=== PATIENT | male | born 1985 | race Caucasian/White ===

== ENCOUNTER 2025-04-06 10:31 | Emergency (ER) | payer MEDICAID, SELFPAY ==
--- NOTE | 2025-04-06 10:30 | RT.EKG_ITS ---
APPROVED REPORT Exam: Resting ECG Reason for Exam: SOB, Difficulty Breathing Patient Location: E HR:87 bpm ECG Measurements Heart Rate 87 AXIS KS 157 P 61 QRSd 81 QRS 11 QT 387 T 156 QTc 465 Conclusion Pacemaker spikes or artifacts...timing non-diagnostic Sinus rhythm...normal P axis, V-rate 60- 99 Abnormal T, consider ischemia, lateral leads...T <-0.20mV, I aVL V5 V6
[2025-04-06 10:40] VITALS: BP 208/62; PULSE 86; RESP 22; O2SAT 97
[2025-04-06 10:43] VITALS: PULSE 86; O2SAT 98
[2025-04-06 10:45] VITALS: BP 205/81; PULSE 87; O2SAT 98
--- NOTE | 2025-04-06 10:45 | DI.RAD_ITS ---
Exam(s) XR CHEST 2V PA LATERAL EXAM: XR CHEST 2V PA LATERAL CLINICAL HISTORY: SOB, L sided CP. TECHNIQUE: 2D digital imaging was performed. COMPARISON: No exams were available for comparison FINDINGS: 2 views: There is cardiomegaly. Mediastinum is not widened. There is diffuse abnormal bilateral interstitial pattern with some patchy infiltrates peripherally. Possible small left pleural effusion. No fractures. No pneumothorax. No osseous lesions evident. IMPRESSION: Cardiomegaly and diffuse abnormal bilateral interstitial and partially confluent pattern. Main considerations are for cardiomyopathy and pulmonary edema versus infectious etiology. Correlation with clinical findings in this 32 atrial patient recommended. Preliminary V rad report was reviewed DATA REPOSITORY: RADIATION DOSE DELIVERED:
[2025-04-06 10:50] VITALS: PULSE 85; O2SAT 98
[2025-04-06 11:00] VITALS: PULSE 83; O2SAT 99
--- NOTE | 2025-04-06 11:00 | W.ED.GENAD ---
Discharge Plan Disposition Patient Disposition: Against Medical Advice Discharge Details Clinical Impression: Kidney failure, Acute hyperkalemia, Fluid overload, Severe anemia, Shortness of breath, Elevated troponin Primary Care Provider: Unknown,Unknown ED Provider: Gretchen Toney Home Meds and New Rx's Prescriptions: New Lokelma 10 gram powder in packet 10 g PO DAILY Qty: 11 0RF furosemide [Lasix] 40 mg tablet 80 mg PO DAILY Qty: 10 0RF metolazone 5 mg tablet 5 mg PO DAILY Qty: 7 0RF torsemide 100 mg tablet 100 mg PO DAILY Qty: 7 0RF Continued metformin [Glucophage XR] 500 mg tablet extended release 24 hr 500 mg PO DAILY lisinopril 20 mg tablet 40 mg PO DAILY Trulicity 0.75 mg/0.5 mL pen injector 0.75 mg subcut QWEEK B12 5,000-100 mcg lozenge 1 jeevan sublingual DAILY amlodipine 5 mg tablet 10 mg PO DAILY labetalol 100 mg tablet 100 mg PO TID chlorthalidone 25 mg tablet 25 mg PO DAILY ondansetron 4 mg tablet,disintegrating 4 mg PO QD-BID PRN moxifloxacin 0.5 % drops 1 drp ophthalmic (eye) TID No Action furosemide [Lasix] 40 mg tablet 40 mg PO DAILY Discharge Instructions Additional Instructions: A referral has been made to [facility] nephrology for you to have urgent follow-up pleat. Please call them first thing Tuesday morning to set up an appointment. It is critically important that you recheck your labs and continue further assessment/monitoring of your condition with your nephrology team. You have decided to leave AGAINST MEDICAL ADVICE. It is strongly recommended that you stay in the hospital and receive treatment for your critical conditions including severe anemia, elevated potassium, fluid overload, elevated troponins concerning for heart attack, and kidney failure. We have discussed the risks of going home without treatment, including cardiac arrhythmias, sudden , respiratory failure, multiorgan dysfunction, loss of lifestyle/permanent disability, and worsening of chronic conditions. You have voiced understanding of this risk, as well as the fact that you are encouraged to return to emergency care at any time. You are being prescribed a medication called Lokelma to help lower your potassium. You will take this 3 times today, then once daily. Your furosemide is also being increased from 40 mg daily to 80 mg daily to help increase your urine output and decrease your fluid retention. You are welcome to return to emergency care at any time if you have any new/concerning symptoms or would like further workup/treatment. Stand Alone Forms: Portal Information Discharge Data Discharge Date/Time-TO BE ENTERED AT DEPARTURE: 04/06/25 14:05 HPI General Date/Time Provider Initiated Documentation: 04/06/25 10:32. HPI Narrative: Amilcar is a 40-year-old male who presents to the emergency department accompanied by his for evaluation of shortness of breath left-sided chest pain. Reports symptoms started 3 days ago, has been progressively worsening since onset. Symptoms accompanied by frontal headache and congestion with occasional nosebleeds; last night had fevers/diaphoresis. He reports he is unable to sleep flat due to shortness of breath, he is also worsened with ambulation. Denies sore throat, ear pain, dizziness, coughing, nausea/vomiting, change in p.o. intake, abdominal pain, change in bowel or bladder function, blood in stool or urine, change in baseline pedal edema. Says he has not had similar symptoms previously. He does have a history of CKD and hypertension. Denies recent ill contacts. Denies significant family history of early cardiac disease. Denies recent surgery, immobility, hormone use, history of blood clots. Denies tobacco use or history of IV drug use, history of lung disease or heart disease. Related Data Home Medications Medication Instructions Recorded Confirmed amlodipine 5 mg tablet 10 mg PO DAILY 04/06/25 04/06/25 chlorthalidone 25 mg tablet 25 mg PO DAILY 04/06/25 04/06/25 cyanocobalamin (B12)-cobamamide 1 jeevan sublingual DAILY 04/06/25 04/06/25 5,000 mcg-100 mcg sublingual lozenge (B12) dulaglutide 0.75 mg/0.5 mL 0.75 mg subcut QWEEK 04/06/25 04/06/25 subcutaneous pen injector (Trulicity) furosemide 40 mg tablet (Lasix) 40 mg PO DAILY 04/06/25 04/06/25 furosemide 40 mg tablet (Lasix) 80 mg (2 x 40 mg) PO DAILY #10 tabs 04/06/25 labetalol 100 mg tablet 100 mg PO TID 04/06/25 04/06/25 lisinopril 20 mg tablet 40 mg PO DAILY 04/06/25 04/06/25 metformin 500 mg tablet,extended 500 mg PO DAILY 04/06/25 04/06/25 release 24 hr (Glucophage XR) metolazone 5 mg tablet 5 mg PO DAILY #7 tabs 04/06/25 moxifloxacin 0.5 % eye drops 1 drp ophthalmic (eye) TID 04/06/25 04/06/25 ondansetron 4 mg disintegrating 4 mg PO QD-BID PRN 04/06/25 04/06/25 tablet sodium zirconium cyclosilicate 10 10 g PO DAILY #11 ea 04/06/25 gram oral powder packet (Lokelma) torsemide 100 mg tablet 100 mg PO DAILY #7 tabs 04/06/25 Previous Rx's Medication Instructions Recorded furosemide 40 mg tablet (Lasix) 80 mg (2 x 40 mg) PO DAILY #10 tabs 04/06/25 metolazone 5 mg tablet 5 mg PO DAILY #7 tabs 04/06/25 sodium zirconium cyclosilicate 10 10 g PO DAILY #11 ea 04/06/25 gram oral powder packet (Lokelma) torsemide 100 mg tablet 100 mg PO DAILY #7 tabs 04/06/25 Allergies Allergy/AdvReac Type Severity Reaction Status Date / Time No Known Allergies Allergy Unverified 04/06/25 11:44 General Stated Complaint: SOB PEYMAN: 2 Exam Const General: cooperative, ill appearing (Pale, increased work of breathing, low energy) acutely and well hydrated Nutritional Appearance: average body habitus [facility] Head: normal to inspection Ears: hearing grossly normal bilaterally General nose exam: external nose normal Face and sinus: normal facial exam Mouth: oral mucosae normal, lip normal and tongue normal Neck Neck: normal visual inspection, full ROM and no lymphadenopathy Chest Chest: normal inspection of the chest and normal palpation of entire chest wall Resp Effort & Inspection: able to speak in complete sentences, no cough and other (Slightly increased work of breathing) Auscultation: clear to auscultation bilaterally Cardio Jugular venous pressure: no JVD Rate: regular rate Rhythm: regular rhythm Heart Sounds: no murmurs Pulses: radial pulses present GI Inspection: normal to inspection, non-distended, no obesity, no visible herniation and no visible pulsation Palpation: soft, no guarding, no hernias and nontender Skin General skin exam: no rashes or lesions noted Neuro General: patient alert, patient oriented x3 and tone normal Cranial Nerves: facial strength normal Cognition: normal cognition Speech: speech normal Motor: muscle tone normal throughout Extrem General: pedal edema bilaterally (Mild, no erythema or warmth) non-pitting Course Vital Signs Vital signs: Vital Signs Pulse 86 04/06/25 10:40 Respiratory Rate 22 04/06/25 10:40 Blood Pressure 208/62 H 04/06/25 10:40 Pulse Oximetry 97 04/06/25 10:40 Pulse 86 04/06/25 10:40 Respiratory Rate 22 04/06/25 10:40 Blood Pressure 208/62 H 04/06/25 10:40 Pulse Oximetry 97 04/06/25 10:40 Oxygen Delivery Method Nasal Cannula 04/06/25 10:40 Oxygen Flow Rate 2 04/06/25 10:40 Medical Decision Making Amilcar is a 32-year-old male who presents to the emergency department today for evaluation of shortness of breath, left-sided chest pain, fatigue, nasal congestion and frontal headache with occasional fever x 3 days Physical exam remarkable for palpation, appears fatigued, increased work of breathing, lung sounds clear bilaterally. No conjunctival pallor or nasal congestion/lesions. Normal heart sounds, regular rate and rhythm. O2 sat 89% on room air after ambulation, increases at rest. D/dx includes but is not limited to: Community-acquired pneumonia, viral illness such as COVID-19 or flu, ACS, CHF, electrolyte imbalance, symptomatic anemia I independently interpreted the following tests: COVID/flu/RSV negative. Chest x-ray notable for diffuse opacities, radiologist interpreted this as multifocal pneumonia versus pulmonary vascular congestion. EKG performed, shows normal sinus rhythm rate 97. Diffuse T wave inversions. I did discuss this with patient, he says that he has known about T wave inversions on his EKGs performed previously and this is not a new finding. CBC notable for significant anemia, H&H 6.4 and 19.6 today versus 10.5 and 31.0 on 06/06/2024. CMP notable for significant hyperkalemia, potassium 6.53 today, and significant worsening of kidney function with creatinine 9.16, BUN 112 (versus 4.35 and 57 respectively on 06/06/2024. BNP very elevated at 46,871. Troponin elevated at 635, a repeat was not obtained as patient only consented to a single blood draw. Amilcar has repeatedly declined an IV despite extensive discussion about risks associated with an incomplete workup. After extensive discussion, including review of chest x-ray results, he does agreeable to a one-time blood draw (thus allowing for only a single troponin and blood culture set), but refuses IV. I explained that I am very concerned about patient's condition, including hypoxia with ambulation, risk of CHF/fluid overload, electrolyte imbalances, symptomatic anemia, cardiac disease, or bloodstream infection. I did offer him PO or intranasal anxiolytics for procedural anxiolysis, which he declined. 1. I explained the current situation and condition to the patient and his 2. I explained the recommended workup/intervention for this condition -IV placement and inpatient admission/transfer for management of fluid overload, electrolyte imbalances, and kidney failure. 4. The patient understands this information has no questions, and repeated back this information. He acknowledges the risk of due to inadequately treated serious conditions, but says that he would rather at home than stay in the hospital. He is willing to do outpatient follow-up with specialist as needed 5. The patient states that they need to leave and will call nephrology first thing Tuesday morning for follow-up appointment. He has also requested that I call with any updates from nephrology consult. 6. Mental status is lucid and the patient has decision-making capacity. 7. Patient is accompanied by his , acknowledges that he can return to the emergency department at any time for further evaluation/management I did review patient presentation and labs with Dr. Birmingham, attending physician. While in the emergency dept patient received 40 mg p.o. furosemide and p.o. Lokelma. He declines IV placement, so p.o. medications were used. Did advise him that these were temporizing measures and were likely to not be effective and he is still at serious risk upon departure from the emergency department as he has requested to leave AGAINST MEDICAL ADVICE. He says that he will follow-up with nephrology outpatient on Tuesday. History and presentation most consistent with kidney failure with fluid overload, serious anemia, hyperkalemia, and elevated troponins (concerning for NSTEMI/demand ischemia). Patient did leave AGAINST MEDICAL ADVICE after extensive and lengthy discussion about significant findings requiring inpatient monitoring and treatment with significant risk for complications including at home. I did review instructions for medication changes (increase of furosemide to 80 mg daily and addition of Lokelma) with patient, including symptomatic management, importance of follow up with PCP, and red flags indicating need for return to emergency care. Pt voices agreement with plan of care I did place a call to [facility] nephrology, as patient and his said that they were still interested in hearing what nephrology had did say and would like me to call him with results of this discussion. I reviewed patient's labs, presentation, and treatment here in ED. Dr. Odell, nephrology recommends adding metolazone 5 mg and switching furosemide to 100 mg torsemide daily with repeat labs on Tuesday or Tuesday. I did call the number listed in chart (Marek's cell phone) and left a message for patient and his to call back for instructions on changes to medications and f/u as recommended by nephrology. Imaging Data Radiologic Study: Radiologist's impression: PROCEDURE INFORMATION: Exam: XR Chest Exam date and time: 04/06/2025 11:13 AM Age: 40 years old Clinical indication: Pain; Shortness of breath; Left-sided TECHNIQUE: Imaging protocol: Radiologic exam of the chest. Views: 2 views. COMPARISON: No relevant prior studies available. FINDINGS: Lungs: Diffuse opacities throughout the lung herr may represent multifocal pneumonia or pulmonary edema or congestive heart failure.. Pleural spaces: There may be mild left pleural effusion.. Heart/Mediastinum: Cardiomegaly Bones/joints: Unremarkable. IMPRESSION: 1. Diffuse opacities throughout the lung herr may represent multifocal pneumonia or pulmonary edema or congestive heart failure.. 2. There may be mild left pleural effusion.. PFSH All Active Problems (Updated 04/06/25 @ 14:05 by Gretchen Lopez) Elevated troponin (Acute) Shortness of breath (Acute) Severe anemia (Acute) Fluid overload (Acute) Acute hyperkalemia (Acute) Kidney failure (Chronic) Social History Smoking/Tobacco Use Status: Never Smoking risk assessment performed?: Yes Alcohol Intake: never Substance use type: does not use
[2025-04-06 11:01] VITALS: BP 193/68; PULSE 83; TEMP 36.5; O2SAT 98
[2025-04-06 11:44] LABS: COVID-19 PCR Negative (Negative); RSV PCR Negative (Negative)
--- NOTE | 2025-04-06 11:48 | DI.VRAD_ITS ---
PROCEDURE INFORMATION: Exam: XR Chest Exam date and time: 04/06/2025 11:13 AM Age: 40 years old Clinical indication: Pain; Shortness of breath; Left-sided TECHNIQUE: Imaging protocol: Radiologic exam of the chest. Views: 2 views. COMPARISON: No relevant prior studies available. FINDINGS: Lungs: Diffuse opacities throughout the lung herr may represent multifocal pneumonia or pulmonary edema or congestive heart failure.. Pleural spaces: There may be mild left pleural effusion.. Heart/Mediastinum: Cardiomegaly Bones/joints: Unremarkable. IMPRESSION: 1. Diffuse opacities throughout the lung herr may represent multifocal pneumonia or pulmonary edema or congestive heart failure.. 2. There may be mild left pleural effusion.. Dictated and Authenticated by: Vadim Anne MD. Orderin Merissa Godinez MD
[2025-04-06 12:36] LABS: Abs Immature Grans 0.03 10^3/uL (0.0-0.06); BE (Venous) -6 mmol/L (-2-3); HCO3 (Venous) 19 mmol/L (23-28); Immature Grans % 0.3 %; MCH 28.4 pg (27.0-33.0); MCHC 32.7 % (32.0-36.0); MCV 87 fL (80-95); MPV 10.5 fL (8.0-11.0); O2 Sat (Venous) 71 %; Platelet Count 170 10^3/uL (130-400); RBC 2.25 10^6/uL (4.36-5.78); RDW 13.9 % (11.8-14.1); RDW-SD 43.6 fL; TCO2 (Venous) 19 mmol/L (24-29); WBC 8.88 10^3/uL (4.4-10.8); pCO2 (Venous) 35 mmHg (41-51); pO2 (Venous) 38 mmHg
[2025-04-06 12:41] LABS: HCT 19.6 % (40.0-50.0); HGB 6.4 g/dL (13.5-17.5)
[2025-04-06 12:47] LABS: Hypochromasia 2+
[2025-04-06 12:56] LABS: Magnesium 2.2 mg/dL (1.6-2.6)
[2025-04-06 13:21] LABS: ALT 11 U/L (10-49); AST 12 U/L (<34); Albumin 3.7 g/dL (3.4-5.0); Alkaline Phosphatase 69 U/L (46-116); Anion Gap 13.1 mmol/L (3-11); BUN 112 mg/dL (9-23); Bilirubin, Total 0.20 mg/dL (0.2-1.2); CO2 18.9 mmol/L (20.0-31.0); Calcium 7.6 mg/dL (8.3-10.6); Chloride 107 mmol/L (98-107); Glucose 109 mg/dL (74-106); Potassium 6.5 mmol/L (3.5-5.1); Sodium 139 mmol/L (136-145); Total Protein 6.1 g/dL (5.7-8.2); Troponin I 653 ng/L (<54)
[2025-04-06] MEDS: Sodium Zirconium Cyclosilicate 10 GM PKT PO (13:46)
[2025-04-06] MEDS: Furosemide 40 MG TAB PO (13:51)
[2025-04-06] MEDS: Furosemide 20 MG TAB (14:18)
[2025-04-06] MEDS: Sodium Zirconium Cyclosilicate 10 GM PKT 20 GM PO (14:19)
== END 2025-04-06 14:05 | disposition left against medical advice (07) ==
PROVIDERS: Emergency Provider Nurse Practitioner Family
DX: D64.9 Anemia, unspecified (principal); R06.02 Shortness of breath; E87.5 Hyperkalemia; N19 Unspecified kidney failure; R79.89 Other specified abnormal findings of blood chemistry; E87.70 Fluid overload, unspecified
CPT/HCPCS: 99285 ×2; 36415; 80053; 82805; 87040; 87637; 93005; 71046; 81003; 83735; 83880; 84484; 85025; 93010

== ENCOUNTER 2025-04-12 13:05 | Emergency (ER) | payer MEDICAID, SELFPAY ==
[2025-04-12] VITALS (53 sets, daily range): BP systolic 159–193; BP diastolic 55–84; PULSE 75–89; RESP 15–24; TEMP 36.4; O2SAT 80–98
--- NOTE | 2025-04-12 13:00 | RT.EKG_ITS ---
APPROVED REPORT Exam: Resting ECG Reason for Exam: dyspnea Patient Location: E HR:81 bpm ECG Measurements Heart Rate 81 AXIS ID 168 P 42 QRSd 100 QRS 28 QT 386 T 132 QTc 449 Conclusion Sinus rhythm...normal P axis, V-rate 60- 99 Abnormal T, consider ischemia, lateral leads...T <-0.20mV, I aVL V5 V6
--- NOTE | 2025-04-12 13:15 | DI.RAD_ITS ---
Exam(s) XR CHEST 2V PA LATERAL EXAM: XR CHEST 2V PA LATERAL CLINICAL HISTORY: shortness of breath TECHNIQUE: 2D digital imaging was performed. Two views. COMPARISON: CR,XR XR CHEST 2V PA LATERAL from 04/06/2025 FINDINGS: HEART: Markedly enlarged but unchanged. Aorta: Not dilated. PULMONARY VASCULATURE: Normal. MEDIASTINUM: Unremarkable. LUNGS: Diffuse bilateral infiltrates, not visibly changed from the prior exam. PLEURAL SPACE: Trace left pleural effusion. No pneumothorax. BONE:Unremarkable for age. SOFT TISSUES: Unremarkable. IMPRESSION: Cardiomegaly and increased pulmonary markings could indicate CHF however superimposed infection is not excluded. DATA REPOSITORY: RADIATION DOSE DELIVERED:
[2025-04-12 13:59] LABS: BE (Venous) -10 mmol/L (-2-3); HCO3 (Venous) 17 mmol/L (23-28); O2 Sat (Venous) 90 %; TCO2 (Venous) 17 mmol/L (24-29); pCO2 (Venous) 37 mmHg (41-51); pO2 (Venous) 62 mmHg
[2025-04-12 14:00] LABS: Abs Immature Grans 0.02 10^3/uL (0.0-0.06); Immature Grans % 0.3 %; MCH 31.7 pg (27.0-33.0); MCHC 36.1 % (32.0-36.0); MCV 88 fL (80-95); MPV 10.7 fL (8.0-11.0); Platelet Count 210 10^3/uL (130-400); RBC 2.21 10^6/uL (4.36-5.78); RDW 13.3 % (11.8-14.1); RDW-SD 42.1 fL; WBC 7.82 10^3/uL (4.4-10.8)
--- NOTE | 2025-04-12 14:00 | W.ED.GENAD ---
Discharge Plan Discharge Details Chief Complaint: Chest Pain Primary Care Provider: Sanjeev Hebert ED Provider: Darrin Ruiz Home Meds and New Rx's Prescriptions: No Action metformin [Glucophage XR] 500 mg tablet extended release 24 hr 500 mg PO DAILY lisinopril 20 mg tablet 40 mg PO DAILY Trulicity 0.75 mg/0.5 mL pen injector 0.75 mg subcut QWEEK B12 5,000-100 mcg lozenge 1 jeevan sublingual DAILY amlodipine 5 mg tablet 10 mg PO DAILY labetalol 100 mg tablet 100 mg PO TID chlorthalidone 25 mg tablet 25 mg PO DAILY ondansetron 4 mg tablet,disintegrating 4 mg PO QD-BID PRN moxifloxacin 0.5 % drops 1 drp ophthalmic (eye) TID Lokelma 10 gram powder in packet 10 g PO DAILY Qty: 11 0RF metolazone 5 mg tablet 5 mg PO DAILY Qty: 7 0RF torsemide 100 mg tablet 100 mg PO DAILY Qty: 7 0RF HPI General Date/Time Provider Initiated Documentation: 04/12/25 13:13. HPI Narrative: 40 year-old male presents to ED today by POV/ambulating with his spouse with a chief complaint of chest pain, shortness of breath, just feeling like crap with onset last night after a complex visit 6 days ago with volume overload, renal failure- left AMA on multiple new medications with [facility] consult. Quality described as just generally feels like crap, no radiation to fever, severe chest pain, denies vomiting, endorses some improvement of his leg swelling after starting diuretics- poor historian. Severity is described as moderate to severe. Palliating factors include taking his new medications as directed. Provoking factors include nothing specific. Patient not anticoagulated. Related Data Home Medications Medication Instructions Recorded Confirmed amlodipine 5 mg tablet 10 mg PO DAILY 04/06/25 04/12/25 chlorthalidone 25 mg tablet 25 mg PO DAILY 04/06/25 04/12/25 cyanocobalamin (B12)-cobamamide 1 jeevan sublingual DAILY 04/06/25 04/12/25 5,000 mcg-100 mcg sublingual lozenge (B12) dulaglutide 0.75 mg/0.5 mL 0.75 mg subcut QWEEK 04/06/25 04/12/25 subcutaneous pen injector (Trulicity) labetalol 100 mg tablet 100 mg PO TID 04/06/25 04/12/25 lisinopril 20 mg tablet 40 mg PO DAILY 04/06/25 04/12/25 metformin 500 mg tablet,extended 500 mg PO DAILY 04/06/25 04/12/25 release 24 hr (Glucophage XR) metolazone 5 mg tablet 5 mg PO DAILY #7 tabs 04/06/25 04/12/25 moxifloxacin 0.5 % eye drops 1 drp ophthalmic (eye) TID 04/06/25 04/12/25 ondansetron 4 mg disintegrating 4 mg PO QD-BID PRN 04/06/25 04/12/25 tablet sodium zirconium cyclosilicate 10 10 g PO DAILY #11 ea 04/06/25 04/12/25 gram oral powder packet (Lokelma) torsemide 100 mg tablet 100 mg PO DAILY #7 tabs 04/06/25 04/12/25 Previous Rx's Medication Instructions Recorded metolazone 5 mg tablet 5 mg PO DAILY #7 tabs 04/06/25 sodium zirconium cyclosilicate 10 10 g PO DAILY #11 ea 04/06/25 gram oral powder packet (Lokelma) torsemide 100 mg tablet 100 mg PO DAILY #7 tabs 04/06/25 Allergies Allergy/AdvReac Type Severity Reaction Status Date / Time No Known Allergies Allergy Unverified 04/12/25 13:09 General Stated Complaint: Chest Pain PEYMAN: 3 Review of Systems All systems reviewed & are unremarkable except as noted in HPI and below Exam Narrative Exam Narrative: GENERAL APPEARANCE: Well-nourished, toxic, awake and alert, atraumatic, moderate acute distress. SKIN: Warm, pale, dry, intact, without rashes/lesions/ulcerations. HEAD: Normocephalic, atraumatic, normal hair distribution for gender/age. EYES: No exudates on lids/lashes. ENT: Nares patent, no circumoral cyanosis, no facial swelling NECK: Supple, trachea midline, painless cervical ROM. LUNGS/CHEST: Lungs CTA bilaterally-no rales at bases, non-labored respirations despite mild hypoxia monitor, normal A/P diameter, symmetrical expansion, no chest wall deformity HEART (CV/PV): Regular rate and rhythm without murmur, 3+ pitting peripheral edema in bilateral lower extremities, no JVD. ABDOMEN: Soft, non-distended, no guarding, no tenderness. MSK: Normal ROM, no swelling/deformity to bilateral UEs or LEs, moving all extremities without weakness, no cyanosis, spine midline without tenderness, normal curvature. NEURO: Mental Status AAOx4 - alert to person, place, time, events No facial droop, no forehead involvement. Motor: No focal weakness - strength 5/5 in bilateral UEs and LEs, proximal and distal, symmetric. Sensory: sensation intact to light touch globally. Gait normal: patient ambulated without ataxia into ED room. PSYCH: dysthymic, uncooperative, tangential, appropriate speech Course Vital Signs Vital signs: Vital Signs Temperature 36.4 C L 04/12/25 13:06 Pulse 87 04/12/25 13:06 Respiratory Rate 18 04/12/25 13:06 Blood Pressure 159/83 H 04/12/25 13:06 Pulse Oximetry 80 L 04/12/25 13:06 Temperature 36.4 C L 04/12/25 13:06 Pulse 87 04/12/25 13:06 Respiratory Rate 18 04/12/25 13:06 Blood Pressure 159/83 H 04/12/25 13:06 Pulse Oximetry 80 L 04/12/25 13:06 Oxygen Delivery Method Room Air 04/12/25 13:06 Oxygen Flow Rate 0 04/12/25 13:06 Pain Level 7 04/12/25 13:06 Lab/Test Results Lab/Test Results: Laboratory Tests Range/Units 04/12/25 13:45 VBG pH (7.31-7.41) 7.28 L VBG pCO2 (41-51) mmHg 37 L VBG pO2 mmHg 62 VBG HCO3 (23-28) mmol/L 17 L VBG Total CO2 (24-29) mmol/L 17 L VBG O2 Saturation % 90 VBG Base Excess (-2-3) mmol/L -10 L VBG Lactate (<or=2.0) mmol/L 0.7 Medical Decision Making This dictation utilizes [id number] dictation software and may contain unedited grammatical errors. 40 year-old male presents to ED today by POV/ambulating with his spouse with a chief complaint of chest pain, shortness of breath, just feeling like crap with onset last night after a complex visit 6 days ago with volume overload, renal failure- left AMA on multiple new medications with [facility] consult. Quality described as just generally feels like crap, no radiation to fever, severe chest pain, denies vomiting, endorses some improvement of his leg swelling after starting diuretics- poor historian. Severity is described as moderate to severe. Palliating factors include taking his new medications as directed. Provoking factors include nothing specific. 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 Family and social history: Endorses past drug use issues, denies active drug use, denies alcohol use, lives at home with his spouse. Pertinent exam findings / vital signs include 3+ pitting edema in lower extremities, pale skin, mild hypoxia on arrival without labored respirations, neuro intact, no rales at bases. Differential / pathologies of concern include anemia, renal failure, hyperkalemia, volume overload. Diagnostic studies of: -CBC, CMP, lactate, lipase, CK, magnesium, troponin, BNP, VBG, urinalysis, XR chest, EKG. - CBC shows HgB of 7.0, improved from prior value 6.4, HCT 19.4- stable with prior 19.6 - CMP shows potassium 6.5, BUN 148 worsening, creatinine 10.79 worsening - Lactate within normal limits - VBG shows metabolic acidosis - CK is elevated at nearly 900 indicating rhabdomyolysis - BNP 40,580- [place] [address] - Trop 192, improved from 6 days ago in 600s - EKG shows sinus rhythm at 81 bpm with no peaked T waves, does have T wave inversions in Lead I, V4-V5 as well as aVL, no ST elevations, no ST depressions, normal QTc, normal axis, good R wave progression Interventions of: - Paged [facility] @ [phone] for transfer, patient needs dialysis. - Patient had previously perseverated on that he would only transfer by POV- refusing ambulance. Will be against medical advice. 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 I stated that the possible excepting facility of [facility] may not be okay with this plan, I am certainly not okay with his reasoning for this and I we will be forced to discharge him AGAINST MEDICAL ADVICE after shifting his potassium. He acknowledged the risk of cardiac arrhythmia and if not treated according to our guidelines of transfer under the care of cardiac monitoring for these medications. This was witnessed by his girlfriend. - 1 g IV calcium gluconate, 1 L D5 W, 1 treatment of albuterol updraft, 40 mg IV Lasix, 10 units insulin subcu, 10 g p.o. of [facility] ED Course/Assessment/Plan: 40-year-old male with T2DM and acute renal failure returns after signing out AMA 6 days ago and acute renal failure with a creatinine of 9.2 at that time worsening to 10.79, he has persistent hyperkalemia of 6.5 without peaked T waves or widened QRS today, his BNP is 40,000 he does have evidence of CHF on chest x-ray and pedal edema as well as mild hypoxia to 88 to 91%, was 80% on arrival ambulating from the parking lot. He has profound anemia with a hemoglobin of 7.0. Patient is unreasonably refusing ambulance transfer because he does not trust other peoples' driving, and acknowledges that he has multiple life threatening conditions and that he will likely without proper treatment, which involves dialysis, and cardiac monitoring for medications during transfer as well as O2 by PR. Patient has capacity and is non-psychotic and acknowledges these facts and insists that he will not go in anyones' car but their own. Patient will have his potassium shifted here, sending Type & Screen, awaiting hospitalist call-back from [facility] in [place], [place] where [facility] states they have capacity for dialysis. Disposition of Acute Renal Failure, Hyperkalemia, CHF Exacerbation, Rhabdomyolysis, Anemia. Patient verbalized understanding of the plan and return to ED criteria and engaged in shared decision making. Medical Records Medical records reviewed: Yes I reviewed the patient's medical records. Imaging Data Radiologic Study: Attestation: I personally reviewed and interpreted this imaging study as follows: Imaging: X-Ray Radiologist's impression: EXAM: XR CHEST 2V PA LATERAL CLINICAL HISTORY: shortness of breath TECHNIQUE: 2D digital imaging was performed. Two views. COMPARISON: CR,XR XR CHEST 2V PA LATERAL from 04/06/2025 FINDINGS: HEART: Markedly enlarged but unchanged. Aorta: Not dilated. PULMONARY VASCULATURE: Normal. MEDIASTINUM: Unremarkable. LUNGS: Diffuse bilateral infiltrates, not visibly changed from the prior exam. PLEURAL SPACE: Trace left pleural effusion. No pneumothorax. BONE:Unremarkable for age. SOFT TISSUES: Unremarkable. IMPRESSION: Cardiomegaly and increased pulmonary markings could indicate CHF however superimposed infection is not excluded. Lab Data Lab results reviewed: Yes I reviewed the patient's lab results. Labs: Laboratory Tests Range/Units 04/12/25 13:45 WBC (4.4-10.8) 10^3/uL 7.82 RBC (4.36-5.78) 10^6/uL 2.21 L Hgb (13.5-17.5) g/dL 7.0 L* Hct (40.0-50.0) % 19.4 L* MCV (80-95) fL 88 MCH (27.0-33.0) pg 31.7 MCHC (32.0-36.0) % 36.1 H RDW (11.8-14.1) % 13.3 Plt Count (130-400) 10^3/uL 210 MPV (8.0-11.0) fL 10.7 Immature Gran % % 0.3 Neutrophils % % 75.4 Lymphocytes % % 12.7 Monocytes % % 6.1 Eosinophils % % 5.1 Basophils % % 0.4 Nucleated RBC % (0.0-0.3) % 0.0 Absolute Neutrophils (1.2-6.7) 10^3/uL 5.90 Absolute Lymphocytes (1.2-3.4) 10^3/uL 0.99 L Absolute Monocytes (0.1-0.8) 10^3/uL 0.48 Absolute Eosinophils (0.0-0.7) 10^3/uL 0.40 Absolute Basophils (0.0-0.2) 10^3/uL 0.03 RBC Morphology See Below Polychromasia Present Anisocytosis 1+ Microcytosis 1+ VBG pH (7.31-7.41) 7.28 L VBG pCO2 (41-51) mmHg 37 L VBG pO2 mmHg 62 VBG HCO3 (23-28) mmol/L 17 L VBG Total CO2 (24-29) mmol/L 17 L VBG O2 Saturation % 90 VBG Base Excess (-2-3) mmol/L -10 L VBG Lactate (<or=2.0) mmol/L 0.7 Sodium (136-145) mmol/L 137 Potassium (3.5-5.1) mmol/L 6.5 H* Chloride (98-107) mmol/L 101 Carbon Dioxide (20.0-31.0) mmol/L 17.6 L Anion Gap (3-11) mmol/L 18.4 H BUN (9-23) mg/dL 148 H* Creatinine (0.73-1.18) mg/dL 10.79 H* Est GFR (CKD-EPI 2020) (mL/min/1.73m2) 5.37 Glucose (74-106) mg/dL 104 Calcium (8.3-10.6) mg/dL 7.1 L Magnesium (1.6-2.6) mg/dL 2.4 Total Bilirubin (0.2-1.2) mg/dL < 0.20 L AST (<34) U/L 13 ALT (10-49) U/L 12 Alkaline Phosphatase (46-116) U/L 87 Creatine Kinase (46-171) U/L 887 H Troponin I (<54) ng/L 192 H* NT-Pro-B Natriuret Pep (<300) pg/mL 19456 H Total Protein (5.7-8.2) g/dL 6.4 Albumin (3.4-5.0) g/dL 3.8 Lipase (<53) U/L 45 PFSH All Active Problems (Updated 04/06/25 @ 14:05 by Gretchen Lopez) Elevated troponin (Acute) Shortness of breath (Acute) Severe anemia (Acute) Fluid overload (Acute) Acute hyperkalemia (Acute) Kidney failure (Chronic) Social History Smoking/Tobacco Use Status: Never Smoking risk assessment performed?: Yes Alcohol Intake: never Substance use type: does not use Housing: house Do you feel safe at home: Yes Do you feel safe in your relationship?: Yes
[2025-04-12 14:08] LABS: HCT 19.4 % (40.0-50.0); HGB 7.0 g/dL (13.5-17.5)
[2025-04-12 14:20] LABS: Magnesium 2.4 mg/dL (1.6-2.6)
[2025-04-12 14:22] LABS: Lipase 45 U/L (<53)
[2025-04-12 14:23] LABS: Creatine Kinase 887 U/L (46-171)
[2025-04-12 14:28] LABS: Anisocytosis 1+; Microcytosis 1+; Polychromasia Present
[2025-04-12 14:45] LABS: ALT 12 U/L (10-49); AST 13 U/L (<34); Albumin 3.8 g/dL (3.4-5.0); Alkaline Phosphatase 87 U/L (46-116); Anion Gap 18.4 mmol/L (3-11); BUN 148 mg/dL (9-23); Bilirubin, Total < 0.20 mg/dL (0.2-1.2); CO2 17.6 mmol/L (20.0-31.0); Calcium 7.1 mg/dL (8.3-10.6); Chloride 101 mmol/L (98-107); Glucose 104 mg/dL (74-106); Potassium 6.5 mmol/L (3.5-5.1); Sodium 137 mmol/L (136-145); Total Protein 6.4 g/dL (5.7-8.2); Troponin I 192 ng/L (<54)
[2025-04-12] MEDS: Furosemide 40 MG/4 ML VIAL IVP (15:26)
[2025-04-12] MEDS: Albuterol 2.5 MG/3 ML INH SOLN VIAL UPD (15:26)
[2025-04-12] MEDS: Dextrose 25%-Water 10 ML SYR IVP (15:26)
[2025-04-12] MEDS: Calcium Gluconate 1,000 MG/10 ML VIAL 1000 MG IVP (15:26)
[2025-04-12] MEDS: Insulin REGULAR-Human 100 UNITS/ML UNIT 10 UNITS SC (15:27)
[2025-04-12] MEDS: Sodium Zirconium Cyclosilicate 10 GM PKT PO ×2 (15:27→16:12)
[2025-04-12] MEDS: DEXTROSE 5%-WATER 500 ML 1000 ML IV (15:37)
--- NOTE | 2025-04-12 15:47 | ED.PROG_ITS ---
Date of service: 04/12/25 Time of Service: 15:47 Medical Decision Making Care assumed from provider (MATHEUS De Souza) Please see their initial HPI, PE, and documentation. Discussed patient details and case and pending workup and disposition. Patient is hemodynamically stable, and alert and oriented. Awaiting transfer to tertiary facility for acute renal failure and CHF. Spoke with weatherization and housing inspector at [facility] who is familiar with this patient from his previous visit. They agree to accept and will speak with the hospitalist he recommends 200 mg of Lasix IV 10 of metaxalone and 10 of Lokelma he also recommends a bladder scan or retroperitoneal ultrasound to rule out urinary obstruction. He states that the plan will most likely be for dialysis tomorrow. 1559: Spoke with Dr. Mauricio Cha with hospitalist team at [facility] they agree to accept patient for admission they will have a bed available tomorrow. He does also recommend bladder ultrasound to rule out obstruction and blood cultures x 2 which were ordered. 1608: Contacted hospitalist Dr. Rios here to get a bed until [facility] has bed available tomorrow. Dr. Rios is recommending seeking bed for transfer tonight due to patient's status. Patient is refusing to go anywhere else he states that he would like to drive POV to [facility] whenever they have a bed available. He has made abundantly clear that he does not want to ride an ambulance despite our reasoning and encouragement otherwise. He is here with his family. I did discuss that we could possibly get him a bed in a different facility but he is also declining at this time. 1648: I did call transfer center to see if ED to ED would be an option, unfortunately this is not an option at this time as they are on a surge for capacity. Will order repeat labs Bladder scan shows 300ml in bladder. 1728: Informed by staff respiratory therapist that patient had 675 mL of urine output and reports feeling much better with decreased shortness of breath. Will check BMP at 1900. 1951: BMP shows improvement in the potassium level to 5.9 BUN and creatanine continue to increase to [address] Daigle night hospitalist to see if there is any chance patient could be admitted overnight. He agrees to accept patient for admission. Informed patient and family of plan of care, they verbalize understanding. 2021: Dr. Daigle at bedside for patient evaluation he reports that patient would like to leave AMA. Patient is alert and oriented and knows of his serious and very critical medical condition. I did stress the importance of awaiting for transfer and admission which patient is declining at this time. Patient is insistent that he is not going to take an ambulance for the transfer. Please s ee the consult note by hospitalist Dr. Daigle. Patient given AMA paperwork instructed to report to the closest large facility that has dialysis capabilities. Patient requesting to leave AMA. The patient appears clinically sober and is not under the influence of any known substances. Discussed risks and benefits with patient. Patient verbalizes understanding of situation and the risks of leaving including worsening condition, developing disability, including but not limited to . Discussed results of labs and imaging, if they were performed and recommendations for further treatment and/or observation. The patient verbalizes understanding of the results discussed. Did discuss the risks and benefits with family which is in the room and situation discussed. At this time patient has opted to leave against medical advice. Patient is alert and oriented and has the capacity to make own decisions. Medical Records Medical records reviewed: Yes I reviewed the patient's medical records. Lab Data Lab results reviewed: Yes I reviewed the patient's lab results. Labs: 04/12/25 15:59 Blood Blood Culture - Pending 04/12/25 15:59 Blood Blood Culture - Pending Laboratory Tests Range/Units 04/12/25 13:45 WBC (4.4-10.8) 10^3/uL 7.82 RBC (4.36-5.78) 10^6/uL 2.21 L Hgb (13.5-17.5) g/dL 7.0 L* Hct (40.0-50.0) % 19.4 L* MCV (80-95) fL 88 MCH (27.0-33.0) pg 31.7 MCHC (32.0-36.0) % 36.1 H RDW (11.8-14.1) % 13.3 Plt Count (130-400) 10^3/uL 210 MPV (8.0-11.0) fL 10.7 Immature Gran % % 0.3 Neutrophils % % 75.4 Lymphocytes % % 12.7 Monocytes % % 6.1 Eosinophils % % 5.1 Basophils % % 0.4 Nucleated RBC % (0.0-0.3) % 0.0 Absolute Neutrophils (1.2-6.7) 10^3/uL 5.90 Absolute Lymphocytes (1.2-3.4) 10^3/uL 0.99 L Absolute Monocytes (0.1-0.8) 10^3/uL 0.48 Absolute Eosinophils (0.0-0.7) 10^3/uL 0.40 Absolute Basophils (0.0-0.2) 10^3/uL 0.03 RBC Morphology See Below Polychromasia Present Anisocytosis 1+ Microcytosis 1+ VBG pH (7.31-7.41) 7.28 L VBG pCO2 (41-51) mmHg 37 L VBG pO2 mmHg 62 VBG HCO3 (23-28) mmol/L 17 L VBG Total CO2 (24-29) mmol/L 17 L VBG O2 Saturation % 90 VBG Base Excess (-2-3) mmol/L -10 L VBG Lactate (<or=2.0) mmol/L 0.7 Sodium (136-145) mmol/L 137 Potassium (3.5-5.1) mmol/L 6.5 H* Chloride (98-107) mmol/L 101 Carbon Dioxide (20.0-31.0) mmol/L 17.6 L Anion Gap (3-11) mmol/L 18.4 H BUN (9-23) mg/dL 148 H* Creatinine (0.73-1.18) mg/dL 10.79 H* Est GFR (CKD-EPI 2020) (mL/min/1.73m2) 5.37 Glucose (74-106) mg/dL 104 Calcium (8.3-10.6) mg/dL 7.1 L Magnesium (1.6-2.6) mg/dL 2.4 Total Bilirubin (0.2-1.2) mg/dL < 0.20 L AST (<34) U/L 13 ALT (10-49) U/L 12 Alkaline Phosphatase (46-116) U/L 87 Creatine Kinase (46-171) U/L 887 H Troponin I (<54) ng/L 192 H* NT-Pro-B Natriuret Pep (<300) pg/mL 35135 H Total Protein (5.7-8.2) g/dL 6.4 Albumin (3.4-5.0) g/dL 3.8 Lipase (<53) U/L 45 Discharge Plan Disposition Patient Disposition: Against Medical Advice Condition: Serious Discharge Details Clinical Impression: Acute renal failure, CHF (congestive heart failure) Primary Care Provider: Sanjeev Hebert ED Provider: Brittney Elizabeth Home Meds and New Rx's Prescriptions: No Action metformin [Glucophage XR] 500 mg tablet extended release 24 hr 500 mg PO DAILY lisinopril 20 mg tablet 40 mg PO DAILY Trulicity 0.75 mg/0.5 mL pen injector 0.75 mg subcut QWEEK B12 5,000-100 mcg lozenge 1 jeevan sublingual DAILY amlodipine 5 mg tablet 10 mg PO DAILY labetalol 100 mg tablet 100 mg PO TID chlorthalidone 25 mg tablet 25 mg PO DAILY ondansetron 4 mg tablet,disintegrating 4 mg PO QD-BID PRN moxifloxacin 0.5 % drops 1 drp ophthalmic (eye) TID Lokelma 10 gram powder in packet 10 g PO DAILY Qty: 11 0RF metolazone 5 mg tablet 5 mg PO DAILY Qty: 7 0RF torsemide 100 mg tablet 100 mg PO DAILY Qty: 7 0RF Discharge Instructions Instructions: Kidney Failure (DC), Heart Failure ED Additional Instructions: At this time you have chosen to leave AGAINST MEDICAL ADVICE despite recommendations for admission and/or transfer. Please be aware that you are condition is serious enough that it could lead up to permanent disability, worsening of your condition up to and including . Your kidneys are dying. You are retaining fluid because your kidneys cannot filter out the fluid properly. This can cause you to go into multi organ failure and your heart can shut down. You need dialysis in the next 24 hours. Please present to the nearest large hospital such as [facility] or similar a place that has dialysis capabilities. Stand Alone Forms: Portal Information Referrals: [facility] [Outside] - 1 day Referral Note: Go to [facility] now Sanjeev Hebert [Primary Care Provider, Medicine] - 2 days
[2025-04-12] MEDS: Furosemide 100 MG/10 ML VIAL 160 MG IVP (16:12)
[2025-04-12] MEDS: metOLazone 2.5 MG TAB 10 MG PO (16:12)
[2025-04-12 17:38] LABS: Glucose Negative (Negative)
[2025-04-12 17:45] LABS: C & S Indicated? Yes; WBC 20-50 HPF (0-5)
[2025-04-12 19:42] LABS: Anion Gap 12.4 mmol/L (3-11); BUN 150 mg/dL (9-23); CO2 18.6 mmol/L (20.0-31.0); Calcium 6.9 mg/dL (8.3-10.6); Chloride 102 mmol/L (98-107); Glucose 70 mg/dL (74-106); Potassium 5.9 mmol/L (3.5-5.1); Sodium 133 mmol/L (136-145)
--- NOTE | 2025-04-12 20:22 | W.MEDCONSULT ---
Date of service: 04/12/25 Time of Service: 20:22 Assessment and Plan Assessment and plan (1) Kidney failure: Status: Chronic Assessment and plan: As mentioned above the patient will leave AGAINST MEDICAL ADVICE. Patient assured me that he is leaving from here to go straight down to [facility]. History of Present Illness History of Present Illness Chief Complaint: sob Narrative: Mr Nieves is a 85-year-old gentleman who presented last week with acute kidney injury. Unfortunately at that time he left AGAINST MEDICAL ADVICE. There was a recommendation for him to follow-up with nephrology down to [facility] but he did not get this appointment. Patient presented again today with worsening shortness of breath and had multiple abnormal lab abnormalities. Specifically his BUN and creatinine is 150/11 and his BNP is over 40,000. His CK is 887 his calcium is 6.9. Troponin is 192. Chest x-ray shows enlarged cardiac shadow. EKG is fairly benign. He does have hyperkalemia with a value of 5.9. The patient was accepted into [facility] for urgent hemodialysis. Unfortunately due to a [facility] Upon my discussion with the patient he adamantly refuses an ambulance ride whether it is tonight or tomorrow. Patient states that he will be AGAINST MEDICAL ADVICE and drive himself down to [facility]. I did discuss with the patient that this course of action can cause permanent disability or . At the time of the conversation he denied any suicidal homicidal ideation. Patient denied any visual or auditory hallucinations. Patient seemed understand the consequences of his actions. It is my view that the patient's best course of action is to wait for his ambulance ride tomorrow, but as mentioned above ED will not take an ambulance. Patient states that the reason he did not want to get ambulance is not cardiology but he just does not like them. I did discuss the case with his significant other as well as the hospital ED staff. [facility] All Active Problems (Updated 04/12/25 @ 19:58 by Brittney Elizabeth NP) CHF (congestive heart failure) (Chronic) Acute renal failure (Acute) Elevated troponin (Acute) Shortness of breath (Acute) Severe anemia (Acute) Fluid overload (Acute) Acute hyperkalemia (Acute) Kidney failure (Chronic) Social History Smoking/Tobacco Use Status: Never Smoking risk assessment performed?: Yes Alcohol Intake: never Substance use type: does not use Housing: house Do you feel safe at home: Yes Do you feel safe in your relationship?: Yes Exam Narrative Exam Narrative: Normocephalic atraumatic mucous membranes moist Bilateral lower extremity edema Alert and oriented x 3 no apparent distress Speaking in complete sentences Results Last Vital Signs Temp 36.4 C L 04/12/25 13:06 Pulse 75 04/12/25 17:26 Resp 22 04/12/25 16:50 BP 178/63 H 04/12/25 16:31 Pulse Ox 92 04/12/25 16:50 Labs 04/12/25 13:45 04/12/25 19:03 Labs: Laboratory Results - last 24 hr 04/12/25 04/12/25 04/12/25 13:45 17:15 19:03 WBC 7.82 RBC 2.21 L Hgb 7.0 L* Hct 19.4 L* MCV 88 MCH 31.7 MCHC 36.1 H RDW 13.3 Plt Count 210 MPV 10.7 Immature Gran % 0.3 Neutrophils % 75.4 Lymphocytes % 12.7 Monocytes % 6.1 Eosinophils % 5.1 Basophils % 0.4 Nucleated RBC % 0.0 Absolute Neutrophils 5.90 Absolute Lymphocytes 0.99 L Absolute Monocytes 0.48 Absolute Eosinophils 0.40 Absolute Basophils 0.03 RBC Morphology See Below Polychromasia Present Anisocytosis 1+ Microcytosis 1+ VBG pH 7.28 L VBG pCO2 37 L VBG pO2 62 VBG HCO3 17 L VBG Total CO2 17 L VBG O2 Saturation 90 VBG Base Excess -10 L VBG Lactate 0.7 Sodium 137 133 L Potassium 6.5 H* 5.9 H Chloride 101 102 Carbon Dioxide 17.6 L 18.6 L Anion Gap 18.4 H 12.4 H BUN 148 H* 150 H* Creatinine 10.79 H* 11.14 H* Est GFR (CKD-EPI 2020) 5.37 5.18 Glucose 104 70 L Calcium 7.1 L 6.9 L Magnesium 2.4 Total Bilirubin < 0.20 L AST 13 ALT 12 Alkaline Phosphatase 87 Creatine Kinase 887 H Troponin I 192 H* NT-Pro-B Natriuret Pep 08206 H Total Protein 6.4 Albumin 3.8 Lipase 45 Urine Color Yellow Urine Clarity Clear Urine pH 5.5 Ur Specific [place] 1.015 Urine Protein >=300 H Urine Ketones Negative Urine Blood Small H Urine Nitrite Negative Urine Bilirubin Negative Urine Urobilinogen 0.2 Ur Leukocyte Esterase Trace H Urine RBC 3-5 H Urine WBC 20-50 H Ur Epithelial Cells Rare Urine Crystals Negative Urine Bacteria Moderate Urine Casts Negative Urine Mucus Negative Ur Culture Indicated? Yes Urine Glucose Negative
--- NOTE | 2025-04-14 09:36 | NUR.NOTE ---
Access chart to determine antibiotic on discharge for urine culture. Result given to provider. Nursing Note:
== END 2025-04-12 22:06 | disposition left against medical advice (07) ==
PROVIDERS: Physician Assistant; Emergency Provider Registered Nurse Emergency; PCP Family Medicine
DX: R07.9 Chest pain, unspecified (principal); N17.9 Acute kidney failure, unspecified; E11.22 Type 2 diabetes mellitus with diabetic chronic kidney disease; I13.2 Hypertensive heart and chronic kidney disease with heart failure and with stage 5 chronic kidney disease, or end stage renal disease; N18.6 End stage renal disease; I50.9 Heart failure, unspecified; Z99.2 Dependence on renal dialysis; Z53.29 Procedure and treatment not carried out because of patient's decision for other reasons
CPT/HCPCS: 00123; 36415; 80048; 80053; 82550; 82805; 83690; 87040; 93005; 94640; 96365; 96375; 96376; 99284; 71046; 81003; 81015; 83605; 83735; 83880; 84484; 85025; 87086; 93010; J0612; J1815; J1938; J7613